=== PATIENT | male | born 1980 | race Caucasian/White ===

== ENCOUNTER 2016-08-04 13:36 | Emergency (ER) | payer BC ==
[~2016-08-04] VITALS: Ht 175.3 cm; Wt 84.0 kg
[2016-08-04 13:37] VITALS: BP 139/86; PULSE 108; RESP 20; TEMP 97.8; O2SAT 97
--- NOTE | 2016-08-04 14:17 | PD ---
Physical Exam Time Seen by Provider: 14:15 Narrative 36 y/o male presents for evaluation of dyspnea, palpitations, lightheadedness, dizziness which started 1030 am while vacuuming. Denies chest pain. vss Seen at triage desk. Awaiting bed placement. Data Data Last Documented VS Vital Signs Date Time Temp Pulse Resp B/P Pulse Ox O2 Delivery O2 Flow Rate FiO2 08/04/16 13:37 97.8 108 20 139/86 97 Room Air [facility] Medical Record Reviewed: Yes Supervised Visit with KATERIN: No Abiodun Sandoval August 04, 2016 14:17
[2016-08-04 15:02] VITALS: BP 146/83; PULSE 101; RESP 18; O2SAT 98
[2016-08-04] MEDS ORDERED: LISD60 PO (15:13)
[2016-08-04] MEDS ORDERED: SODIUM CHLORIDE 0.9% FLUSH 10 ML FLUSH IVF PRN (15:15)
[2016-08-04] MEDS ORDERED: SODIUM CHLOR 0.9% 1000 ML INJ 1,000 ML IV ONE ×2 (15:15→16:15)
[2016-08-04 15:21] VITALS: RESP 18; O2SAT 98
--- NOTE | 2016-08-04 15:24 | PD ---
HPI Chief Complaint: Respiratory Distress Time Seen by Provider: 15:01 Travel History International Travel<30 days: No Contact w/Intl Traveler<30days: No Traveled to known affect area: No History of Present Illness HPI The patient is a 36-year-old male who presents to the emergency department for dizziness, lightheadedness, and presyncope. The patient states he awakened this morning to go to work and felt somewhat "lethargic ". The patient states when he arrived at work he started to work and felt somewhat better. However, the patient then developed palpitations, felt like his heart was beating fast and hard, mild lightheadedness, and mild shortness of breath. The patient states he had no caffeine intake this morning, tried to eat lunch and drink some water, however, his symptoms persisted. The patient does have a history of ADHD and takes a medication, however, has been stable on this medication for over 8 months. He does note recent travel several weeks ago to [place], [place], but denies any previous history of pulmonary embolism or DVT. The patient denies any recent surgeries, hospitalizations, swelling to lower extremities, or chest pain. The patient does state he was working in the yard several days ago when he became lightheaded, flushed, and felt like his extremities were tingling. The patient denies any known history of thyroid disorders. Symptoms are moderate, no alleviating or exacerbating factors. PFSH Past Medical History ADHD: Yes Diabetes: No Tetanus Vaccination: Unknown Influenza Vaccination: No Past Surgical History Abdominal Surgery: Yes (INGUINAL HERNIA) Social History Alcohol Use: Yes (OCCAS) Tobacco Use: Yes (occasional tobacco use) Substance Use: No Allergies-Medications (Allergen,Severity, Reaction): Coded Allergies: Codeine (Verified Allergy, Severe, Nausea/Vomiting, 08/04/16) Pertussis Vaccine (Verified Allergy, Severe, Hives, 08/04/16) Reported Meds & Prescriptions Reported Meds & Active Scripts Active Reported Vyvanse (Lisdexamfetamine Dimesylate) 60 Mg Cap 60 Mg PO DAILY Review of Systems Except as stated in HPI: all other systems reviewed are Neg General / Constitutional: No: Fever Eyes: No: Blurred Vision HENT: Positive: Lightheadedness Cardiovascular: Positive: Chest Pain or Discomfort, Palpitations, Tachycardia, No: Diaphoresis Respiratory: Positive: Shortness of Breath Gastrointestinal: No: Nausea, Vomiting, Abdominal Pain Musculoskeletal: Positive: Weakness Neurologic: Positive: Dizziness Psychiatric: No: Substance Abuse Physical Exam Narrative GENERAL: Awake, alert, pleasant 36-year-old male who appears his stated age and is in no acute respiratory distress. SKIN: Focused skin assessment warm/dry. HEAD: Atraumatic. Normocephalic. EYES: Pupils equal and round. No scleral icterus. No injection or drainage. ENT: No nasal bleeding or discharge. Mucous membranes pink and moist. NECK: Trachea midline. No JVD. CARDIOVASCULAR: Regular, tachycardic with a heart rate of 100. No audible murmur. RESPIRATORY: No accessory muscle use. Clear to auscultation. Breath sounds equal bilaterally. GASTROINTESTINAL: Abdomen soft, non-tender, nondistended. No rebound tenderness. MUSCULOSKELETAL: No obvious deformities. No clubbing. No cyanosis. No edema. NEUROLOGICAL: Awake and alert. No obvious cranial nerve deficits. Motor grossly within normal limits. Normal speech. Nonfocal. PSYCHIATRIC: Appropriate mood and affect; insight and judgment normal. Data Data Last Documented VS Vital Signs Date Time Temp Pulse Resp B/P Pulse Ox O2 Delivery O2 Flow Rate FiO2 08/04/16 15:26 93 18 147/78 109 18 151/83 112 18 168/94 08/04/16 15:21 98 Room Air 08/04/16 13:37 97.8 Orders Electrocardiogram (08/04/16 ) Electrocardiogram (08/04/16 15:15) Complete Blood Count With Diff (08/04/16 15:15) Comprehensive Metabolic Panel (08/04/16 15:15) B-Type Natriuretic Peptide (08/04/16 15:15) Ckmb (Isoenzyme) Profile (08/04/16 15:15) Troponin I (08/04/16 15:15) Act Partial Throm Time (Ptt) (08/04/16 15:15) Prothrombin Time / Inr (Pt) (08/04/16 15:15) Chest, Single Ap (08/04/16 15:15) Ecg Monitoring (08/04/16 15:15) Iv Access Insert/Monitor (08/04/16 15:15) Oximetry (08/04/16 15:15) Sodium Chloride 0.9% Flush (Ns Flush) (08/04/16 15:15) Sodium Chlor 0.9% 1000 Ml Inj (Ns 1000 M (08/04/16 15:15) Orthostatic Vital Signs (08/04/16 15:15) D-Dimer (08/04/16 15:15) Thyroid Stimulating Hormone (08/04/16 15:15) Free Thyroxine (T4) (08/04/16 15:15) CKMB (08/04/16 15:20) CKMB% (08/04/16 15:20) Sodium Chlor 0.9% 1000 Ml Inj (Ns 1000 M (08/04/16 16:15) Labs Laboratory Tests Test 08/04/16 15:20 White Blood Count 10.2 TH/MM3 Red Blood Count 5.05 MIL/MM3 Hemoglobin 15.0 GM/DL Hematocrit 44.3 % Mean Corpuscular Volume 87.7 FL Mean Corpuscular Hemoglobin 29.7 PG Mean Corpuscular Hemoglobin 33.9 % Concent Red Cell Distribution Width 13.0 % Platelet Count 236 TH/MM3 Mean Platelet Volume 9.0 FL Neutrophils (%) (Auto) 65.9 % Lymphocytes (%) (Auto) 26.7 % Monocytes (%) (Auto) 6.4 % Eosinophils (%) (Auto) 0.6 % Basophils (%) (Auto) 0.4 % Neutrophils # (Auto) 6.7 TH/MM3 Lymphocytes # (Auto) 2.7 TH/MM3 Monocytes # (Auto) 0.6 TH/MM3 Eosinophils # (Auto) 0.1 TH/MM3 Basophils # (Auto) 0.0 TH/MM3 CBC Comment DIFF FINAL Differential Comment Prothrombin Time 11.0 SEC Prothromb Time International 1.0 RATIO Ratio Activated Partial 23.9 SEC Thromboplast Time D-Dimer Quantitative (PE/DVT) LESS THAN 0.19 MG/L FEU Sodium Level 141 MEQ/L Potassium Level 3.8 MEQ/L Chloride Level 105 MEQ/L Carbon Dioxide Level 30.2 MEQ/L Anion Gap 6 MEQ/L Blood Urea Nitrogen 17 MG/DL Creatinine 1.40 MG/DL Estimat Glomerular Filtration 58 ML/MIN Rate Random Glucose 88 MG/DL Calcium Level 9.2 MG/DL Total Bilirubin 0.3 MG/DL Aspartate Amino Transf 17 U/L (AST/SGOT) Alanine Aminotransferase 34 U/L (ALT/SGPT) Alkaline Phosphatase 82 U/L Total Creatine Kinase 263 U/L Creatine Kinase MB 1.6 NG/ML Troponin I LESS THAN 0.02 NG/ML B-Type Natriuretic Peptide 4 PG/ML Total Protein 7.2 GM/DL Albumin 4.5 GM/DL Free Thyroxine 0.93 NG/DL Thyroid Stimulating Hormone 3.750 uIU/ML 3rd Gen [facility] Medical Decision Making Medical Screen Exam Complete: Yes Emergency Medical Condition: Yes Medical Record Reviewed: Yes Interpretation(s) EKG reveals normal sinus rhythm with a rate in 94. No evidence of WPW or Brugada syndrome. No evidence of arrhythmia. Q wave noted in lead 3. Laboratory Tests Test 08/04/16 15:20 White Blood Count 10.2 TH/MM3 Red Blood Count 5.05 MIL/MM3 Hemoglobin 15.0 GM/DL Hematocrit 44.3 % Mean Corpuscular Volume 87.7 FL Mean Corpuscular Hemoglobin 29.7 PG Mean Corpuscular Hemoglobin 33.9 % Concent Red Cell Distribution Width 13.0 % Platelet Count 236 TH/MM3 Mean Platelet Volume 9.0 FL Neutrophils (%) (Auto) 65.9 % Lymphocytes (%) (Auto) 26.7 % Monocytes (%) (Auto) 6.4 % Eosinophils (%) (Auto) 0.6 % Basophils (%) (Auto) 0.4 % Neutrophils # (Auto) 6.7 TH/MM3 Lymphocytes # (Auto) 2.7 TH/MM3 Monocytes # (Auto) 0.6 TH/MM3 Eosinophils # (Auto) 0.1 TH/MM3 Basophils # (Auto) 0.0 TH/MM3 CBC Comment DIFF FINAL Differential Comment Prothrombin Time 11.0 SEC Prothromb Time International 1.0 RATIO Ratio Activated Partial 23.9 SEC Thromboplast Time D-Dimer Quantitative (PE/DVT) LESS THAN 0.19 MG/L FEU Sodium Level 141 MEQ/L Potassium Level 3.8 MEQ/L Chloride Level 105 MEQ/L Carbon Dioxide Level 30.2 MEQ/L Anion Gap 6 MEQ/L Blood Urea Nitrogen 17 MG/DL Creatinine 1.40 MG/DL Estimat Glomerular Filtration 58 ML/MIN Rate Random Glucose 88 MG/DL Calcium Level 9.2 MG/DL Total Bilirubin 0.3 MG/DL Aspartate Amino Transf 17 U/L (AST/SGOT) Alanine Aminotransferase 34 U/L (ALT/SGPT) Alkaline Phosphatase 82 U/L Total Creatine Kinase 263 U/L Troponin I LESS THAN 0.02 NG/ML B-Type Natriuretic Peptide 4 PG/ML Total Protein 7.2 GM/DL Albumin 4.5 GM/DL Free Thyroxine 0.93 NG/DL Thyroid Stimulating Hormone 3.750 uIU/ML 3rd Gen Last Impressions Chest X-Ray 08/04/16 1515 Signed Impressions: Service Date/Time: Thursday, August 04, 2016 15:14 - CONCLUSION: Normal examination. Horace Ugalde Jr., MD Differential Diagnosis Differential diagnosis includes hyperthyroidism, pulmonary embolism, arrhythmia , electrolyte abnormality, medication side effect, substance ingestion, dehydration, symptomatic anemia. Narrative Course IV was established, labs were drawn and sent, and the patient was placed on cardiac telemetry monitoring and continuous pulse oximetry monitoring. EKG was ordered and interpreted. Chest x-ray was obtained. D-dimer and TSH were sent to lab. Chest x-rays unremarkable. D-dimer is less than 0.19, therefore, no indication for CT pulmonary angiogram. White count is normal. Hemoglobin/ hematocrit are normal, no evidence of symptomatic anemia. Orthostatic vital signs revealed stable blood pressure, heart rate does mildly elevated. Creatinine is mildly elevated 1.4 with GFR 58. Patient's TSH was mildly low, however, free T4 is normal. Patient appears to have mild dehydration, was administered a second liter of IV fluids. The patient will be discharged home after second liter of IV fluids and is advised to follow-up with his primary physician. Diagnosis Primary Impression: Acute kidney injury Additional Impression: Dehydration Patient Instructions: General Instructions Additional Instructions: Plenty of fluids to stay hydrated. Work excuse for today and tomorrow. Follow- up with a primary physician for repeat creatinine. Return if symptoms worsen or progress. Med/Other Pt SpecificInfo: No Change to Meds Disposition: 01 DISCHARGE HOME Condition: Stable Olegario Allen MD August 04, 2016 15:24
[2016-08-04 15:26] VITALS: BP_SYST 147; BP_SYST 151; BP_SYST 168; BP_DIAS 78; BP_DIAS 83; BP_DIAS 94; RESP 18
[2016-08-04 15:39] LABS: AUTOMATED NEUTROPHIL # 6.7 TH/MM3 (1.8-7.7); BASOPHIL % 0.4 % (0.0-2.0); EOSINOPHIL # 0.1 TH/MM3 (0-0.4); EOSINOPHIL % 0.6 % (0.0-4.0); HEMATOCRIT 44.3 % (39.0-51.0); HEMO FLAGS DIFF FINAL; LYMPH % 26.7 % (9.0-44.0); LYMPHOCYTE # 2.7 TH/MM3 (1.0-4.8); MEAN CELL VOLUME 87.7 FL (80.0-100.0); MEAN CORPUSCULAR HEMOGLOBIN 29.7 PG (27.0-34.0); MEAN CORPUSCULAR HGB CONC 33.9 % (32.0-36.0); MONO % 6.4 % (0.0-8.0); NEUT % 65.9 % (16.0-70.0); PLATELET COUNT 236 TH/MM3 (150-450); RED BLOOD COUNT 5.05 MIL/MM3 (4.50-5.90); WHITE BLOOD COUNT 10.2 TH/MM3 (4.0-11.0)
[2016-08-04 15:56] LABS: ALT (GPT) 34 U/L (12-78); ANION GAP 6 MEQ/L (5-15); AST (GOT) 17 U/L (15-37); BICARBONATE 30.2 MEQ/L (21.0-32.0); BLOOD UREA NITROGEN 17 MG/DL (7-18); CHLORIDE 105 MEQ/L (98-107); GLOMERULAR FILTRATION RATE 58 ML/MIN (>89); POTASSIUM 3.8 MEQ/L (3.5-5.1); SODIUM (NA) 141 MEQ/L (136-145)
--- NOTE | 2016-08-04 15:56 | RADRPT ---
EXAM DATE/TIME: 08/04/2016 15:14 [facility] COMPARISON: No previous studies available for comparison. INDICATIONS : Palpitations. Patient states shortness of breath and heart racing. MEDICAL HISTORY : None. SURGICAL HISTORY : None. ENCOUNTER: Initial ACUITY: 1 day PAIN SCORE: 0/10 LOCATION: Bilateral chest FINDINGS: A single view of the chest demonstrates the lungs to be symmetrically aerated without evidence of mas s, infiltrate or effusion. The cardiomediastinal contours are unremarkable. Osseous structures are intact. CONCLUSION: Normal examination. Horace Ugalde Jr., MD on August 04, 2016 at 15:53 Board Certified Radiologist. This report was verified electronically.
[2016-08-04 16:06] LABS: ALKALINE PHOSPHATASE 82 U/L (45-117); CREATINE KINASE 263 U/L (39-308); FREE T4 0.93 NG/DL (0.76-1.46); TOTAL BILIRUBIN ADULT 0.3 MG/DL (0.2-1.0)
[2016-08-04 16:07] LABS: APTT (PATIENT) 23.9 SEC (24.3-30.1)
[2016-08-04 16:18] LABS: CKMB 1.6 NG/ML (0.5-3.6)
[2016-08-04 16:46] VITALS: BP 128/74; PULSE 88; RESP 22
--- NOTE | 2016-08-04 18:23 | EKG ---
Date Performed: 08/04/2016 Time Performed: 14:25:25 PTAGE: 36 years EKG: Sinus rhythm NORMAL ECG NO PREVIOUS TRACING DOCTOR: Trevor Ellington Interpretating Date/Time 08/04/2016 18:20:58
[2016-08-04 18:55] VITALS: BP 122/73; PULSE 84; RESP 18; O2SAT 98
== END 2016-08-04 19:00 | disposition home or self-care (01) ==
LOC: NEPD 13:36
DX: N17.9 Acute kidney failure, unspecified (principal); E86.0 Dehydration; R42 Dizziness and giddiness; R55 Syncope and collapse; R00.2 Palpitations; R06.02 Shortness of breath; Z72.0 Tobacco use; Z86.59 Personal history of other mental and behavioral disorders
CPT/HCPCS: 71010; 80053; 82550; 82552; 83880; 84439; 84443; 84484; 85025; 85379; 85610; 85730; 93005; 96360; 99285; J7030